=== PATIENT | male | born 1955 | race Caucasian/White ===

== ENCOUNTER 2017-05-20 21:41 | Inpatient (IN) | payer MEDICARE ==
[2017-05-20 23:06] LABS: #Eosinphils 0.2 thou/uL (0.0-0.7); #Lymphocytes 1.4 thou/uL (1.20-3.40); #Monocytes 0.5 thou/uL (0.11-0.59); #Neutrophils 4.3 thou/uL (1.40-6.50); %Basophils 0.7 % (0.0-1.0); %Eosinophils 2.6 % (0.0-10.0); %Lymphocytes 22.5 % (21.0-51.0); %Monocytes 7.9 % (0.0-10.0); %Neutrophils 66.2 % (42.0-75.0); Hemoglobin 14.6 g/dL (14.0-18.0); Mean Corpuscular HGB CONC 32.9 g/dL (32.0-36.0); Mean Corpuscular Volume 94.2 fl (80.0-94.0); Platelet Count 155 thou/uL (130-400); Red Blood Cell (RBC) Count 4.71 mill/uL (4.70-6.10); White Blood Cell (WBC) Count 6.4 thou/uL (4.8-10.8)
[2017-05-20 23:23] LABS: ALT (SGPT) 29 U/L (8-55); AST (SGOT) 35 U/L (5-34); Albumin 3.5 g/dL (3.4-4.8); Alkaline Phosphatase 184 U/L (40-150); Anion Gap 15 mmol/L (10-20); BUN (Urea Nitrogen) 9 mg/dL (8.4-25.7); Bilirubin, Total 1.1 mg/dL (0.2-1.2); Calc. Creatinine Clearance 0 mL/min (70-130); Calcium 9.3 mg/dL (7.8-10.44); Carbon Dioxide 21 mmol/L (23-31); Chloride 103 mmol/L (98-107); Estimated GFR-MDRD 75; Globulin 4.1 g/dL (2.4-3.5); Glucose 116 mg/dL (80-115); Potassium 3.8 mmol/L (3.5-5.1); Protein, Total 7.6 g/dL (5.8-8.1); Sodium 135 mmol/L (136-145)
[2017-05-21] MEDS ORDERED: Morphine 4 MG/ML VIAL ONE (00:50)
[2017-05-21] MEDS ORDERED: Ondansetron HCl/PF 4 MG/2 ML Vial IVP PRN ×3 (01:17→16:04)
[2017-05-21] MEDS ORDERED: Ondansetron ODT 4 MG TAB SL PRN (01:17)
[2017-05-21] MEDS: Dextrose 5 % And 0.9 % NaCl 1,000 ML IV SCH ×2 (01:59→08:35)
[2017-05-21 03:12] VITALS: BMI 37.0
[2017-05-21] MEDS ORDERED: PROVENTIL INHALER 6.7 G (200 INHALATIONS) INH PRN (03:47)
[2017-05-21] MEDS: Morphine 4 MG/ML VIAL SLOW IVP PRN ×2 (04:40→08:27)
[2017-05-21] MEDS: Piperacillin/Tazobactam 3.375 GM in Sodium Chloride 0.9% 100 ML IVPB SCH ×4 (04:40→21:31)
--- NOTE | 2017-05-21 05:04 | PDOC.FPRHP ---
- History of Present Illness Chief Complaint: Right knee swelling, failed outpatient treatment for cellulitis History of Present Illness: 61 year old male with PMH of COPD and alcoholic cirrhosis of the liver that presents with left knee swelling, erythema, and warmth since of last week. He states that he saw his PCP on Saturday regarding the knee swelling and pain and was diagnosed with cellulitis of the right knee. He was prescribed bactrim and clindamycin. Since that time the swelling and erythema have worsened. He has also started to develop an abscess over the proximal tibia. Patient had a total knee replacement performed by Dr. Up. Timing of knee replacement unknown at this time. Patient went back to see PCP today and was told to go to the ER since he failed outpatient treatment. Patient denies fever or chills. ED Course: Patient was started on Vancomycin 1 gm in the ED. Ortho was consulted. Dr. Colmenares accepted patient. Patient to be seen by ortho tomorrow. - Allergies/Adverse Reactions Allergies Allergy/AdvReac Type Severity Reaction Status Date / Time No Known Drug Allergies Allergy Verified 05/21/17 02:24 - Home Medications Medication Instructions Recorded Confirmed Type BuPROPion XL [Wellbutrin XL] 300 mg PO DAILY 05/21/17 05/21/17 History DULoxetine HCl [DULoxetine HCl] 60 mg PO DAILY 05/21/17 05/21/17 History HYDROcodone/Acetaminophen 1 tab PO Q6H PRN 05/21/17 05/21/17 History [Hydrocodone-Acetamin 10-325 mg] Lactulose [Constulose] 15 ml PO BID 05/21/17 05/21/17 History Milk Thistle 1,000 mg PO BID 05/21/17 05/21/17 History Pantoprazole [Protonix] 40 mg PO DAILY 05/21/17 05/21/17 History Ventolin HFA Inhaler [Ventolin HFA 1 puff INH Q4HR PRN 05/21/17 05/21/17 History Inhaler] risperiDONE 4 mg PO HS 05/21/17 05/21/17 History traZODone HCl [Trazodone HCl] 100 mg PO HS 05/21/17 05/21/17 History - History PMHx: COPD, Alcoholic cirrhosis of the liver, Depression PSHx: Right total knee replacement, right shoulder replacement, 4 back surgeries , Right hip arthroplasty FHx: CAD in father. He at age 52. Mother has CHF. Social: Patient endorses smoking 1/2-1 PPD since he was 10 years old. Patient quit drinking 3.5 years ago. He denies drug use. - Review of Systems General: denies: fever/chills, weight/appetite/sleep changes, night sweats Eyes: denies: vision changes ENT: denies: nasal congestion Respiratory: denies: cough, shortness of breath Cardiovascular: denies: chest pain, palpitation, edema Gastrointestinal: denies: nausea, vomiting, diarrhea Genitourinary: denies: dysuria Skin: reports: rashes (Right knee redness and warm, with abscess formation) Musculoskeletal: reports: pain (Right knee pain) Neurological: denies: syncope, weakness Psychological: reports: depression - Vital signs BP: [118/78] HR: [115] RR: [20] Tmax: [97.7] Pox: [97]% on [RA] Wt: [120.5 kg ] - Physical Exam Constitutional: NAD, awake, alert and oriented, well developed HEENT: normocephalic and atraumatic, EOMI Neck: supple Heart: RRR, normal S1/S2, no murmurs/rubs/gallops, pulses present, no edema Lungs: CTAB, no respiratory distress, no wheezing Abdomen: soft, non-tender, bowel sounds present Neurological: no focal deficit, CN II-XII intact Skin: capillary refill <2 seconds -Skin: Erythematous, warm knee with surrounding cellulitis. Abscess formation which is fluctulant without purulent discharge on proximal tibia. Spider angiomas diffusely throughout. Heme/Lymphatic: no unusual bruising or bleeding FMR H&P: Results - Labs Result Diagrams: 05/21/17 05:44 05/21/17 05:44 Lab results: WBC 6.4 thou/uL (4.8-10.8) 05/20/17 22:41 Hgb 14.6 g/dL (14.0-18.0) 05/20/17 22:41 Hct 44.3 % (42.0-52.0) 05/20/17 22:41 MCV 94.2 fl (80.0-94.0) H 05/20/17 22:41 Plt Count 155 thou/uL (130-400) 05/20/17 22:41 Neutrophils % 66.2 % (42.0-75.0) 05/20/17 22:41 ESR Westergren 75 mm/hr (Less than 20) 05/20/17 22:41 Sodium 135 mmol/L (136-145) L 05/20/17 22:41 Potassium 3.8 mmol/L (3.5-5.1) 05/20/17 22:41 Chloride 103 mmol/L (98-107) 05/20/17 22:41 Carbon Dioxide 21 mmol/L (23-31) L 05/20/17 22:41 BUN 9 mg/dL (8.4-25.7) 05/20/17 22:41 Creatinine 1.00 mg/dL (0.6-1.3) 05/20/17 22:41 Glucose 116 mg/dL (80-115) H 05/20/17 22:41 Lactic Acid 1.0 mmol/L (0.5-2.2) 05/21/17 02:28 Calcium 9.3 mg/dL (7.8-10.44) 05/20/17 22:41 Total Bilirubin 1.1 mg/dL (0.2-1.2) 05/20/17 22:41 AST 35 U/L (5-34) H 05/20/17 22:41 ALT 29 U/L (8-55) 05/20/17 22:41 Alkaline Phosphatase 184 U/L (40-150) H 05/20/17 22:41 C-Reactive Protein 3.82 mg/dL (= or < 0.5) H 05/20/17 22:41 Serum Total Protein 7.6 g/dL (5.8-8.1) 05/20/17 22:41 Albumin 3.5 g/dL (3.4-4.8) 05/20/17 22:41 - Radiology Interpretation Other Additional comment: CT RLE: Abscess formation abutting proximal tibia FMR H&P: A/P - Problem List (1) Cellulitis of knee, right Current Visit: Yes Status: Acute Code(s): L03.115 - CELLULITIS OF RIGHT LOWER LIMB (2) Abscess of right knee Current Visit: Yes Status: Acute Code(s): L02.415 - CUTANEOUS ABSCESS OF RIGHT LOWER LIMB (3) COPD (chronic obstructive pulmonary disease) Current Visit: Yes Status: Acute (4) Alcoholic cirrhosis of liver Current Visit: Yes Status: Acute Code(s): K70.30 - ALCOHOLIC CIRRHOSIS OF LIVER WITHOUT ASCITES - Plan Cellulitis of right knee - Failed outpatient treatment with bactrim and clindamycin - Started on Vancomycin in ED. Added zosyn for more coverage until wound cultures and blood cultures result. - Blood cultures pending - Wound cultures pending - Ortho to see patient in AM; appreciate recommendations - ESR 75, CRP 3.82 - No evidence of osteomyelitis on CT Abscess of right knee - CT scan done in outside ED; abscess abutting proximal tibia - Wound culture pending - Ortho recs appreciated - Patient made NPO at midnight for possible surgery in AM - Patient on vanc and zosyn - Blood cultures pending - Coags pending as patient may go back for surgical debridement COPD - Continue home medications Alcoholic liver cirrhosis - Continue home medications - Quit drinking 3.5 years ago FMR H&P: Upper Level - Pertinent history 61yo CM with pmhx alcoholic cirrhosis, COPD and osteoarthritis presents with 4 day h/o right knee erythema, pain, swelling and warmth. Seen by PCP as outpt and started on bactrim + clinda for presumed abscess. Pt noted to clinically worsen over the following days and have spread of cellulitis and increase in size of abscess. No fevers, chills, nausea or vomiting. Endorses pain with ROM and difficulty w/ weight bearing. Regular orthopedist- Dr. Up Pt endorses significant hx of ortho procedures including rt shoulder, rt hip, and rt knee x 2 arthroplasties. - Pertinent findings PE- Gen- A&Ox3, well appearing, NAD CV- rrr, no mrg. trace pitting edema to b/l LE Lungs- CTAB abd- soft, nontender, obese, no fluid wave derm- spider angiomas scattered to chest. rt knee warm cellulitis with local abscess between medial joint line and tibia which is fluctuant, but no purulent material expressed. wound cultures obtained at bedside. msk- right knee limited ROM due to pain and edema psyc- poor memory, but affect appropriate. Labs- CBC- 6.4 LA- 3.6 CRP- 3.82 ESR- 75 Cr0- 1.0 w/ gfr = 75 CT right knee at outside ED- deep abscess to medial component of right knee abutting tibia. - Plan Date/Time: 05/21/17 0503 61yo CM w/ pmhx OA s/p multiple arthroplasties and cirrhosis who p/w- 1) Right knee cellulitis with abscess- ortho consulted in ED and plans for I&D in OR 05/21. NPO now. Continue Vanc (increase dose to 1.5mg q8hr) and add Zosyn for coverage of Gram-neg organisms. suspicious for polymicrobial lesion due to failure of outpt abx. pending ortho recs and surgical debridement. s/p BCx and WCx. 2) alcoholic cirrhosis- cont home meds. check coags, plt, hgb prior to surgery. *pt unsure of rest of medical history therefore, await arrival of for further information. I, [Nunu Peoples DO ([email or web address])], have evaluated this patient and agree with findings/plan as outlined by sport intern resident. Pertinent changes/additions are listed here. Attending Addendum - Attending Addendum Date/Time: 05/21/17 9178 I personally evaluated the patient and discussed the management with Dr. Johnson and Dr Vines. The H&P is repeated by me. I agree with the History, Examination, Assessment and Plan documented above with any addition or exceptions noted below.
[2017-05-21 05:59] LABS: #Eosinphils 0.2 thou/uL (0.0-0.7); #Lymphocytes 1.2 thou/uL (1.20-3.40); #Monocytes 0.4 thou/uL (0.11-0.59); #Neutrophils 2.8 thou/uL (1.40-6.50); %Basophils 0.4 % (0.0-1.0); %Eosinophils 5.3 % (0.0-10.0); %Lymphocytes 25.6 % (21.0-51.0); %Neutrophils 59.7 % (42.0-75.0); Hemoglobin 13.4 g/dL (14.0-18.0); Mean Corpuscular HGB CONC 32.8 g/dL (32.0-36.0); Mean Corpuscular Hemoglobin 30.7 pg (27.0-31.0); Mean Corpuscular Volume 93.5 fl (80.0-94.0); Mean Platelet Volume 8.5 fL (7.4-10.4); Platelet Count 136 thou/uL (130-400); RBC Distribution Width 12.8 % (11.5-14.5); Red Blood Cell (RBC) Count 4.36 mill/uL (4.70-6.10); White Blood Cell (WBC) Count 4.7 thou/uL (4.8-10.8)
[2017-05-21 06:03] LABS: INR-International Normal Ratio 1.2; Prothrombin Time 15.7 SEC (12.0-14.7)
[2017-05-21 06:04] LABS: PTT 34.1 SEC (22.9-36.1)
[2017-05-21 06:10] LABS: Anion Gap 12 mmol/L (10-20); BUN (Urea Nitrogen) 8 mg/dL (8.4-25.7); Calc. Creatinine Clearance 157 mL/min (70-130); Calcium 8.8 mg/dL (7.8-10.44); Carbon Dioxide 24 mmol/L (23-31); Chloride 106 mmol/L (98-107); Estimated GFR-MDRD Greater than 90; Glucose 84 mg/dL (80-115); Potassium 3.8 mmol/L (3.5-5.1); Sodium 138 mmol/L (136-145)
[2017-05-21] MEDS ORDERED: Vancomycin HCl 1.5 GM in Sodium Chloride 0.9% 250 ML 300 ML IVPB SCH (07:00)
[2017-05-21] MEDS: DULoxetine 60 MG CAP PO SCH (08:35)
[2017-05-21] MEDS: Bupropion 150 MG XL TAB PO SCH (08:35)
[2017-05-21] MEDS ORDERED: MILK THISTLE 1000 MG PO SCH (09:00)
[2017-05-21 09:11] LABS: Amphetamine Not Detected (NotDetected); Barbiturates Screen Not Detected (NotDetected); Benzodiazepine Screen Not Detected (NotDetected); Cocaine Metabolite Screen Not Detected (NotDetected); Medtox Control Line Valid? VALID (VALID); Medtox Reader # READER 4; Methadone Not Detected (NotDetected); Methamphetamine Not Detected (NotDetected); Opiate Screen Detected (NotDetected); Oxycodone Screen Not Detected (NotDetected); Phencyclidine (PCP) Not Detected (NotDetected); THC/Cannabinoid Screen Not Detected (NotDetected); Tricyclic Screen Not Detected (NotDetected)
--- NOTE | 2017-05-21 09:58 | CON ---
DATE OF CONSULTATION: 05/21/2017 REQUESTING PHYSICIAN: Dr. Celena Robbins CONSULTING PHYSICIAN: Dr. Venkatesh Colmenares for Dr. Dieudonne Up. BRIEF HISTORY: This is a 61-year-old male who presented to his primary care doctor on Saturday for inc reasing redness and what he noticed was a blister to his right knee. He states he started some antib iotics for which he believes was Bactrim and clindamycin. He states these did not help at all and [facility] condition worsened. He returned back to his doctor on Saturday. He states his doctor lanced the abs cess on his anterior knee. He then presented to the emergency department yesterday as directed by [facility] doctor. The patient has had a history of a right total knee replacement to his knee many years ago which was revised by Dr. Up approximately 5-6 years ago. The patient denies fever or chills. He denies increasing pain in the joint or difficulty moving the joint, more so than normal. He state s he normally has some pain and difficulty with movement, but this is no worse than normal. PAST MEDICAL HISTORY: COPD and alcohol cirrhosis of the liver, depression. PAST SURGICAL HISTORY: Right total knee replacement x2, right shoulder replacement and 4 back surger ies. SOCIAL HISTORY: The patient smokes approximately a half a pack per day since he was 10 years old. H e states he quit drinking 3-1/2 years ago. Denies illicit drug use. FAMILY HISTORY: Reviewed and noncontributory. REVIEW OF SYSTEMS: Ten point review of systems conducted and otherwise negative except for as stated above. ALLERGIES: No known drug allergies. PHYSICAL EXAMINATION: VITAL SIGNS: Temperature of 98.0, pulse of 93, respiratory rate of 16. Blood pressure 116/70. GENERAL: The patient is awake and alert. He is in no acute distress. He is lying in bed supine. N o family is present at this time. HEENT: Head is normocephalic, atraumatic. NECK: Supple. LUNGS: Breathing is nonlabored. NEUROLOGIC: No focal neuro deficits noted. EXTREMITIES: The right lower extremity was examined. The patient has a bandage to the proximal tibi a region on the anteromedial aspect with drainage. This was removed. This does appear to be activel y draining purulent material at this time. Surrounding erythema measures approximately 10 x 4 cm. T here is palpable induration. The patient has a visible anterior midline scar over the anterior knee from prior total knee replacement. Active range of motion, with flexion to approximately 60 degrees. Distal neurovascular status intact. LABORATORY FINDINGS: Including a CBC show a white blood cell count of 4.7, hemoglobin of 13.4, hemat ocrit of 40.8 and platelets of 136. ASSESSMENT AND PLAN: Abscess formation to right anterior knee. The patient did have a CT scan which is not available for review at this time. Per Medicine Team notes the CT showed an abscess formatio n abutting the proximal tibia. Per my evaluation today, I concur with this evaluation. It does not appear that the abscess extends into the joint. We will go ahead and take the patient to the OR toda y for I&D due to the close proximity of this infection to the knee joint itself. Plan of care discus sed with Dr. Colmenares. The patient will be added on for today for I&D right knee. Risks, benefits, and alternatives were discussed at length with the patient today. He verbalized understanding and i s in agreeance with the plan of care. We will proceed with surgery this afternoon. The case also di scussed with Dr. Up. Thank you for this consultation.
[2017-05-21] MEDS ORDERED: Vancomycin HCl 1 GM in Premix Bag 1 BAG IVPB SCH (11:00)
[2017-05-21] MEDS ORDERED: Neomycin-Polymyxin 1 ML AMP ONE (14:33)
[2017-05-21] MEDS ORDERED: Midazolam HCl 2 mg/2 ml Vial ONE (14:44)
[2017-05-21] MEDS ORDERED: Fentanyl 250 MCG/5 ML VIAL ONE (14:44)
[2017-05-21] MEDS ORDERED: Lidocaine 1% PF 5 ML VIAL ONE (14:53)
[2017-05-21] MEDS ORDERED: Propofol 200 MG/20 ML VIAL ONE (14:53)
[2017-05-21] MEDS ORDERED: Ondansetron HCl/PF 4 MG/2 ML Vial ONE (14:53)
[2017-05-21] MEDS ORDERED: Acetaminophen 325 MG TAB PO PRN (15:38)
[2017-05-21] MEDS ORDERED: Ondansetron ODT 4 MG TAB PO PRN (15:38)
[2017-05-21] MEDS ORDERED: Fentanyl 100 MCG/2 ML VIAL SLOW IVP PRN (15:40)
[2017-05-21] MEDS ORDERED: Promethazine HCl 25 MG/ML VIAL SLOW IVP PRN (16:04)
[2017-05-21] MEDS ORDERED: Promethazine HCl 25 MG/ML VIAL IM PRN (16:04)
[2017-05-21] MEDS ORDERED: Fentanyl 100 MCG/2 ML VIAL ONE ×2 (16:07→16:25)
--- NOTE | 2017-05-21 16:28 | OP ---
DATE OF OPERATION: 05/21/2017 OPERATION: Right knee abscess, irrigation and debridement. PREOPERATIVE DIAGNOSIS: Right knee abscess. POSTOPERATIVE DIAGNOSIS: Right knee abscess. COMPLICATIONS: None. ESTIMATED BLOOD LOSS: Minimal. SURGEON: Venkatesh Colmenares M.D. ANESTHESIA: General. INDICATIONS: Mr. Dudley is a 61-year-old male who presented to the Emergency Department with swelling , pain, and erythema over his anteromedial knee. This began draining purulent material. He was admi tted to the hospital for intravenous antibiotics. He was indicated for surgical intervention. Goal of surgery is to eradicate infection and prevent further spread into his knee joint, which does have a total knee arthroplasty. Risks have been reviewed. Primary risk is further infection or involveme nt of his knee joint itself. He has elected to proceed with the operation. DESCRIPTION OF PROCEDURE: Mr. Dudley was identified in the preoperative holding area. His correct ex tremity was marked. He was carried to the operating room. He was positioned supine. General anesth esia was induced. A multidisciplinary timeout was performed. The right lower extremity was prepped and draped in sterile fashion. At this point, we made an incision over the anteromedial proximal tib ia. We dissected down through the subcutaneous tissues. Purulent material was encountered. We cure tted this as well as performed an excisional debridement using a knife and rongeur. We worked down t o the level of the tibial bone. I probed the depths of the wound carefully. There was no area that seemed to involve the knee joint. There was no exposed cement or metallic part of the knee arthropla sty. We thoroughly irrigated with copious lavage. Again, we debrided. We then packed the wound wit h iodoform gauze. I then placed 2-0 nylon sutures in interrupted fashion loosely closing the wound. Sterile dressing was applied. The patient was taken to the recovery room in good condition without complication.
[2017-05-21] MEDS: Vancomycin HCl 1 GM in Premix Bag 1 BAG IVPB SCH (17:39)
[2017-05-21] MEDS: HYDROcodone/Acetaminophen 10/325 mg Tablet PO PRN ×2 (17:40→22:55)
--- NOTE | 2017-05-21 17:54 | RAD ---
TWO VIEWS OF THE RIGHT KNEE: 05/21/17 INDICATION: Abscess and right knee pain. FINDINGS: There is a right total knee prosthesis. There is healed fracture deformity involving the proximal tib ial metaphyseal region. There is slight anterior and medial angulation at the fracture site. There is diffuse osteopenia. Accentuated nutrient foramina is seen involving the mid to proximal tibia. Ther e is a prominent intra-articular body seen within the posterior aspect of the right knee joint, measu ring 1.8 cm. IMPRESSION: 1. Healed posttraumatic deformity involving the proximal tibia. 2. Right total knee prosthesis without overt evidence of loosening. 3. Intra-articular body. POS: [facility]
[2017-05-21] MEDS: traZODone HCl 50 MG TAB PO SCH (22:54)
[2017-05-21] MEDS: risperiDONE 1 MG TAB PO SCH (22:54)
[2017-05-22] MEDS: HYDROcodone/Acetaminophen 10/325 mg Tablet PO PRN ×4 (04:57→22:58)
[2017-05-22] MEDS: Piperacillin/Tazobactam 3.375 GM in Sodium Chloride 0.9% 100 ML IVPB SCH ×4 (04:57→22:52)
[2017-05-22] MEDS: Vancomycin HCl 1 GM in Premix Bag 1 BAG IVPB SCH ×2 (06:53→18:32)
[2017-05-22 07:48] LABS: #Eosinphils 0.3 thou/uL (0.0-0.7); #Monocytes 0.4 thou/uL (0.11-0.59); #Neutrophils 2.8 thou/uL (1.40-6.50); %Basophils 0.3 % (0.0-1.0); %Eosinophils 7.7 % (0.0-10.0); %Lymphocytes 22.7 % (21.0-51.0); %Monocytes 7.8 % (0.0-10.0); %Neutrophils 61.5 % (42.0-75.0); Hemoglobin 12.8 g/dL (14.0-18.0); Mean Corpuscular HGB CONC 33.2 g/dL (32.0-36.0); Mean Corpuscular Hemoglobin 31.3 pg (27.0-31.0); Mean Platelet Volume 8.7 fL (7.4-10.4); Platelet Count 131 thou/uL (130-400); RBC Distribution Width 12.8 % (11.5-14.5); Red Blood Cell (RBC) Count 4.09 mill/uL (4.70-6.10); White Blood Cell (WBC) Count 4.5 thou/uL (4.8-10.8)
[2017-05-22 08:07] LABS: Anion Gap 10 mmol/L (10-20); BUN (Urea Nitrogen) 6 mg/dL (8.4-25.7); Calc. Creatinine Clearance 161 mL/min (70-130); Calcium 8.2 mg/dL (7.8-10.44); Carbon Dioxide 23 mmol/L (23-31); Chloride 111 mmol/L (98-107); Estimated GFR-MDRD Greater than 90; Glucose 115 mg/dL (80-115); Potassium 3.8 mmol/L (3.5-5.1); Sodium 140 mmol/L (136-145)
[2017-05-22] MEDS: DULoxetine 60 MG CAP PO SCH (09:08)
[2017-05-22] MEDS: Bupropion 150 MG XL TAB PO SCH (09:08)
--- NOTE | 2017-05-22 11:27 | PDOC.FM ---
- Subjective Subjective: S/p I&D by ortho yesterday. NAD this AM, VSS, afebrile. No new complaints. - Objective MAR Reviewed: Yes Vital Signs & Weight: Vital Signs (12 hours) Temp Pulse Resp BP Pulse Ox 05/22/17 08:05 97.9 F 83 16 115/66 96 05/22/17 08:00 97.9 F 83 16 05/22/17 04:24 98.1 F 85 15 148/65 H 94 L Weight Admit Weight 120.519 kg Weight 120.519 kg I&O: 05/21/17 05/22/17 05/23/17 06:59 06:59 06:59 Intake Total 2000 Output Total 3000 Balance -1000 Result Diagrams: 05/22/17 07:27 05/22/17 07:27 <Zeferino Vines - Last Filed: 05/22/17 11:25> - Objective Vital Signs & Weight: Vital Signs (12 hours) Temp Pulse Resp BP Pulse Ox 05/22/17 16:30 98 F 95 14 161/83 H 98 05/22/17 12:15 98.1 F 87 18 131/77 98 05/22/17 08:05 97.9 F 83 16 115/66 96 05/22/17 08:00 97.9 F 83 16 Weight Admit Weight 120.519 kg Weight 120.519 kg I&O: 05/21/17 05/22/17 05/23/17 06:59 06:59 06:59 Intake Total 2000 Output Total 3000 Balance -1000 Result Diagrams: 05/22/17 07:27 05/22/17 07:27 <Papo Han - Last Filed: 05/22/17 17:43> Phys Exam - Physical Examination Constitutional: NAD Respiratory: no wheezing, clear to auscultation bilateral Cardiovascular: RRR Gastrointestinal: soft, non-tender bandage over right knee Neurological: moves all 4 limbs Psychiatric: normal affect, A&O x 3 <Zeferino Vines - Last Filed: 05/22/17 11:25> Dx/Plan (1) Abscess of right knee Code(s): L02.415 - CUTANEOUS ABSCESS OF RIGHT LOWER LIMB Status: Acute Plan: S/p I&D cultures growing GNR, likely why failed Bactrim and clinda outpatient RX Cont. w/ zosyn and vanc for now until cultures finalize (2) Alcoholic cirrhosis of liver Code(s): K70.30 - ALCOHOLIC CIRRHOSIS OF LIVER WITHOUT ASCITES Status: Chronic Plan: Stable Will cont. to monitor (3) COPD (chronic obstructive pulmonary disease) Status: Chronic Plan: Stable Will cont. to monitor <Zeferino Vines - Last Filed: 05/22/17 11:25> (1) Cellulitis of knee, right Code(s): L03.115 - CELLULITIS OF RIGHT LOWER LIMB Status: Acute (2) Abscess of right knee Code(s): L02.415 - CUTANEOUS ABSCESS OF RIGHT LOWER LIMB Status: Acute (3) COPD (chronic obstructive pulmonary disease) Status: Chronic (4) Alcoholic cirrhosis of liver Code(s): K70.30 - ALCOHOLIC CIRRHOSIS OF LIVER WITHOUT ASCITES Status: Chronic <Papo Han - Last Filed: 05/22/17 17:43> Attending Addendum - Attending Addendum Date/Time: 05/22/17 4090 I personally evaluated the patient and discussed the management with Dr. Vines. I agree with the History, Examination, Assessment and Plan documented above with any addition or exceptions noted below. <Papo Han - Last Filed: 05/22/17 17:43>
--- NOTE | 2017-05-22 13:53 | PRG ---
DATE OF SERVICE: 05/22/2017 SUBJECTIVE: Mr. Dudley underwent irrigation and debridement of the proximal anteromedial abscess on t he right leg yesterday by Dr. Colmenares. I discussed the case with Dr. Colmenares, the infection did not appear to enter into the knee joint. The patient states that he is feeling much better since the surgery. OBJECTIVE: VITAL SIGNS: The patient has been afebrile. Vital signs have been stable. EXTREMITIES: The patient has an area of erythema and some swelling over the anteromedial aspect of t he prior right leg that measures approximately a 10 x 4 cm. There is no purulent drainage. There is some bloody drainage present. The right lower extremity is neurovascularly intact. The patient is able to actively extend the right knee and flex it up to 70 degrees with minimal discomfort. LABORATORY DATA: The cultures show gram negative nya. Final determination of the bacteria is pendin g and sensitivities are also pending. PLAN: The patient was started on IV vancomycin and Zosyn. We will stop that. We will start him on gentamicin 100 mg q.8 hours, and we will adjust it appropriately pending culture results and sensitiv ity.
[2017-05-22 18:11] LABS: Vancomycin, Trough 16.7 ug/mL
[2017-05-22] MEDS: traZODone HCl 50 MG TAB PO SCH (22:57)
[2017-05-22] MEDS: risperiDONE 1 MG TAB PO SCH (22:57)
[2017-05-22] MEDS: Docusate 100 MG CAP PO SCH (22:58)
[2017-05-23] MEDS: Piperacillin/Tazobactam 3.375 GM in Sodium Chloride 0.9% 100 ML IVPB SCH ×3 (04:13→17:21)
[2017-05-23] MEDS: HYDROcodone/Acetaminophen 10/325 mg Tablet PO PRN ×3 (04:53→17:15)
[2017-05-23] MEDS: Vancomycin HCl 1 GM in Premix Bag 1 BAG IVPB SCH (05:46)
[2017-05-23 05:57] LABS: #Basophils 0.1 thou/uL (0.0-0.2); #Eosinphils 0.4 thou/uL (0.0-0.7); #Lymphocytes 1.3 thou/uL (1.20-3.40); #Monocytes 0.3 thou/uL (0.11-0.59); #Neutrophils 2.4 thou/uL (1.40-6.50); %Basophils 1.2 % (0.0-1.0); %Eosinophils 8.1 % (0.0-10.0); %Lymphocytes 28.9 % (21.0-51.0); %Monocytes 6.4 % (0.0-10.0); %Neutrophils 55.4 % (42.0-75.0); Hemoglobin 12.3 g/dL (14.0-18.0); Mean Corpuscular HGB CONC 33.1 g/dL (32.0-36.0); Mean Corpuscular Hemoglobin 31.2 pg (27.0-31.0); Mean Corpuscular Volume 94.4 fl (80.0-94.0); Mean Platelet Volume 8.3 fL (7.4-10.4); Platelet Count 129 thou/uL (130-400); Red Blood Cell (RBC) Count 3.94 mill/uL (4.70-6.10); White Blood Cell (WBC) Count 4.3 thou/uL (4.8-10.8)
[2017-05-23 06:19] LABS: Anion Gap 12 mmol/L (10-20); BUN (Urea Nitrogen) 7 mg/dL (8.4-25.7); Calc. Creatinine Clearance 165 mL/min (70-130); Calcium 8.2 mg/dL (7.8-10.44); Carbon Dioxide 22 mmol/L (23-31); Chloride 110 mmol/L (98-107); Estimated GFR-MDRD Greater than 90; Glucose 102 mg/dL (80-115); Potassium 3.5 mmol/L (3.5-5.1); Sodium 140 mmol/L (136-145)
[2017-05-23] MEDS ORDERED: Polyethylene Glycol 3350 17 GM Packet PO SCH (09:00)
[2017-05-23] MEDS: DULoxetine 60 MG CAP PO SCH (09:49)
[2017-05-23] MEDS: Bupropion 150 MG XL TAB PO SCH (09:50)
[2017-05-23] MEDS: Docusate 100 MG CAP PO SCH (09:51)
--- NOTE | 2017-05-23 10:47 | PDOC.FM ---
- Subjective Subjective: LEIGH overnight, VSS. no new complaints. Up walking w/ PT this AM. - Objective MAR Reviewed: Yes Vital Signs & Weight: Vital Signs (12 hours) Temp Pulse Resp BP Pulse Ox 05/23/17 08:00 98 F 77 14 05/23/17 07:55 98.1 F 78 16 125/73 98 05/23/17 04:00 98 F 77 14 118/71 96 05/22/17 23:50 99.1 F 87 16 107/64 95 Weight Admit Weight 120.519 kg Weight 120.519 kg I&O: 05/22/17 05/23/17 05/24/17 06:59 06:59 06:59 Intake Total 2000 1000 Output Total 3000 2425 Balance -1000 -1425 Result Diagrams: 05/23/17 05:38 05/23/17 05:38 <Zeferino Vines - Last Filed: 05/23/17 10:45> - Objective Vital Signs & Weight: Weight Admit Weight 120.519 kg Weight 120.519 kg I&O: 05/23/17 05/24/17 05/25/17 06:59 06:59 06:59 Intake Total 1000 Output Total 2425 Balance -1425 Result Diagrams: 05/23/17 05:38 05/23/17 05:38 <Papo Han - Last Filed: 05/24/17 07:48> Phys Exam - Physical Examination Constitutional: NAD Respiratory: no wheezing, clear to auscultation bilateral Cardiovascular: RRR, no significant murmur Gastrointestinal: soft, non-tender, no distention Musculoskeletal: no edema, pulses present Neurological: moves all 4 limbs R-knee bandaged w/ sero-sang drainage noted <Zeferino Vines - Last Filed: 05/23/17 10:45> Dx/Plan (1) Abscess of right knee Code(s): L02.415 - CUTANEOUS ABSCESS OF RIGHT LOWER LIMB Status: Acute Plan: S/p I&D cultures growing GNR, pending sensitivities Cont. w/ zosyn and vanc for now until cultures finalize Will touch base with ortho today (2) Alcoholic cirrhosis of liver Code(s): K70.30 - ALCOHOLIC CIRRHOSIS OF LIVER WITHOUT ASCITES Status: Chronic Plan: Stable Will cont. to monitor (3) COPD (chronic obstructive pulmonary disease) Status: Chronic Plan: Stable Will cont. to monitor <Zeferino Vines - Last Filed: 05/23/17 10:45> (1) Cellulitis of knee, right Code(s): L03.115 - CELLULITIS OF RIGHT LOWER LIMB Status: Acute (2) Abscess of right knee Code(s): L02.415 - CUTANEOUS ABSCESS OF RIGHT LOWER LIMB Status: Acute (3) COPD (chronic obstructive pulmonary disease) Status: Chronic (4) Alcoholic cirrhosis of liver Code(s): K70.30 - ALCOHOLIC CIRRHOSIS OF LIVER WITHOUT ASCITES Status: Chronic <Papo Han - Last Filed: 05/24/17 07:48> Attending Addendum - Attending Addendum Date/Time: 05/24/17 0748 I personally evaluated the patient and discussed the management with Dr. Vines on 05/23/17. I agree with the History, Examination, Assessment and Plan documented above with any addition or exceptions noted below. <Papo Han - Last Filed: 05/24/17 07:48>
[2017-05-23 12:40] VITALS: BP 141/83; TEMP 97.8
--- NOTE | 2017-05-24 01:07 | DIS-2 ---
DATE OF ADMISSION: 05/21/2017 DATE OF DISCHARGE: 05/23/2017 ADMITTING ATTENDING: Vicente Lo MD DISCHARGE ATTENDING: Papo Han MD RESIDENT: Zeferino Vines MD CONSULTATION: Orthopedics, Dr. Up. PROCEDURES: Right knee abscess incision and drainage. IMAGING: Radiograph of the right knee without evidence of loosening of prosthesis or fracture. PRIMARY DIAGNOSIS: Abscess of right knee with surrounding cellulitis secondary to Escherichia coli i nfection without involvement of prosthesis. SECONDARY DIAGNOSES: 1. Chronic obstructive pulmonary disease. 2. Alcoholic liver cirrhosis. DISCHARGE MEDICATIONS: 1. Levothyroxine 150 mg p.o. daily. 2. Albuterol sulfate 1 puff q.4 hours as needed for shortness of breath. 3. Wellbutrin 300 mg p.o. daily. 4. Cymbalta 60 mg p.o. daily. 5. [place] 10/325 mg one tab p.o. q.6 hours as needed for pain. 6. Lactulose 15 g p.o. b.i.d. 7. Protonix 40 mg p.o. b.i.d. 8. Risperidone 4 mg p.o. at bedtime. 9. Trazodone 100 mg p.o. at bedtime. DISCONTINUED MEDICATIONS: None. HISTORY OF PRESENT ILLNESS: The patient is a 61-year-old male who presented to the ER for evaluation of right knee swelling, erythema, and warmth since of the week prior to presentation. Repo rtedly, the patient saw his PCP physician on the following day on that Saturday and was prescribed Bact rim and clindamycin for diagnosed with cellulitis. The patient reports that the swelling, erythema g ot worse, prompting evaluation at the emergency room. Patient with history of a right total knee rep lacement with an area of fluctuance noted at the tibial tuberosity on the right knee, concern for pos sible involvement of the prosthesis. The patient was started on vancomycin and Zosyn and transferred over to [place] for further management. Dr. Colmenares of Orthopedics was consulted. Upon patien t arrival with plans to take the patient back to the OR for surgical incision and drainage. At this time, Orthopedics obtained a culture of purulent material within the abscess and sent for culture. Emory العلي in the operating room, the abscess was debrided and gently probed without any involvement of the knee prosthesis. Culture grew back E. coli sensitive to Levaquin. Dr. Up, who is the patient' s primary orthopedic doctor and who did his knee replacements, took over care of the following day st at post operation. He was contacted and findings of culture were discussed. Plan is to send the p atient home on p.o. Levaquin to complete a full 14-day course of antibiotics with plan is to follow u p with either PCP or Dr. Up in outpatient setting for suture removal in approximately 10-14 days status post placement. Patient with down trending white count and remained afebrile throughout enti re hospital course. He was tolerating p.o. and ambulating prior to discharge home. DISPOSITION: Stable. DISCHARGE INSTRUCTIONS: 1. Location: Home. 2. Followup: Follow up with primary care provider, Dr. Up in 10-14 days for stitches removal i n the right knee. 3. Activity as tolerated.
== END 2017-05-23 17:54 | disposition home or self-care (01) | DRG 572 ==
LOC: ERS 21:41 → SURG A 05-21 01:02
PROVIDERS: ADMIT Family Medicine; ATTEND Family Medicine
PROC: 0JBN0ZZ Excision of Right Lower Leg Subcutaneous Tissue and Fascia, Open Approach (ICD-10-PCS; principal; 2017-05-21)
PROC: 0QBG0ZZ Excision of Right Tibia, Open Approach (ICD-10-PCS; 2017-05-21)
DX: L02.415 Cutaneous abscess of right lower limb (principal); K70.30 Alcoholic cirrhosis of liver without ascites; B96.20 Unspecified Escherichia coli [E. coli] as the cause of diseases classified elsewhere; L03.115 Cellulitis of right lower limb; J44.9 Chronic obstructive pulmonary disease, unspecified; F17.210 Nicotine dependence, cigarettes, uncomplicated; F32.9 Major depressive disorder, single episode, unspecified; Z96.651 Presence of right artificial knee joint
CPT/HCPCS: 36415; 80048; 80053; 80202; 80306; 83605; 85025; 85610; 85652; 85730; 86140; 87040; 87070; 87077; 87186; 87205; 96365; 96375; 99406; J2001; J2250; J2270; J2405; J2543; J2704; J3010; J3370; J7050

== ENCOUNTER 2018-07-10 07:27 | Outpatient (CLI) | payer MEDICARE ==
--- NOTE | 2018-07-10 08:39 | ULT ---
ULTRASOUND HEPATIC DOPPLER DUPLEX: DATE: 07/10/2018. HISTORY: A 63-year-old male with cirrhosis. TECHNIQUE: Lackey scale images of right upper quadrant and spleen. Color flow and spectral analysis of major blood vessels associated with the liver. FINDINGS: Spleen measures approximately 14 x 5.5 x 5.5 cm, with estimated volume of approximately 225 mL. Hepatic size and echogenicity are within normal limits. Hepatic parenchymal detail is poorly visuali zed because of signal dropout due to body habitus. Hepatic margins are also not well visualized. Common duct caliber 5 mm. No gallstones or pericholecystic fluid. Gallbladder wall thickness at upper limits of normal, 3 mm. Questionable sludge in gallbladder. No hydronephrosis of the right kidney. Pulsatile hepatic arterial blood flow demonstrated. Hepatofugal flow with appropriate pulsed Doppler waveforms in the left, middle, and right, hepatic ve ins. Hepatopetal flow with appropriate waveforms, in the main, left, and right portal veins. IMPRESSION: 1. Poor visualization of the liver parenchyma due to body habitus. 2. No evidence of portal venous hypertension. POS: [facility]
== END 2018-07-10 07:28 | disposition home or self-care (01) ==
LOC: BICULT 07:27
PROVIDERS: ATTEND Internal Medicine Gastroenterology
DX: K21.0 Gastro-esophageal reflux disease with esophagitis (principal); K74.60 Unspecified cirrhosis of liver; D12.6 Benign neoplasm of colon, unspecified; I25.10 Atherosclerotic heart disease of native coronary artery without angina pectoris
CPT/HCPCS: 76705

== ENCOUNTER 2018-08-12 08:54 | Outpatient (CLI) | payer MEDICARE ==
[2018-08-12 09:57] LABS: Estimated GFR-MDRD - POC Greater than 90
== END 2018-08-12 08:55 | disposition home or self-care (01) ==
LOC: BICMRI 08:54
PROVIDERS: ATTEND Internal Medicine Gastroenterology
DX: K74.60 Unspecified cirrhosis of liver (principal)
CPT/HCPCS: 82565

== ENCOUNTER 2018-08-26 08:49 | Outpatient (CLI) | payer MEDICARE ==
[~2018-08-26 08:49] MED LIST: Gadobenate Dimeglumine 529 MG/1 ML (20ML VIAL) ONE
--- NOTE | 2018-08-26 11:09 | MRI ---
MRI Abdomen W WO Con History: K 74.60 cirrhosis Comparison: Ultrasound liver jul 10 2018 Findings: Within hepatic segment 8 is arterial enhancing mass with extension to the anterior segment right portal vein with peripheral intrahepatic ductal dilatation. This mass measures 3.5 x 3.6 x 3.2 cm. No significant enhancing capsule. There is continued contrast retention throughout the examin ation. No other abnormal arterial hyperenhancing mass is appreciated. Spleen is unremarkable. Mild nodular contour of the liver. Pancreas unremarkable as well as the spleen. Incidental note is made of a splenule. Kidneys are unrem arkable. There is a mass within the left adrenal gland which is enlarged from 2012 although has and adrenal sp dustin CSI ratio of 0.44 and and adrenal signal intensity index is 61.3%, both indicated of lipid rich adenoma. Aortic contour is nonaneurysmal. There is sludge with cholelithiasis. Impression: LR-TIV: ([id number] IN VEIN). 3.5 x 3.6 x 3.2 cm mass within hepatic segment 8 involving the anter ior branch right portal vein with peripheral intrahepatic biliary dilatation. Mass does demonstrate arterial phase hyperenhancement although continues to collect contrast throughout the phase of the ex am without washout enhancing capsule. Cholangiocarcinoma is felt less likely.
== END 2018-08-26 08:50 | disposition home or self-care (01) ==
LOC: TBSIIMAG 08:49
PROVIDERS: ATTEND Internal Medicine Gastroenterology
DX: K74.60 Unspecified cirrhosis of liver (principal); R16.0 Hepatomegaly, not elsewhere classified
CPT/HCPCS: 74183; A9577